=== PATIENT | male | born 1995 | race American Indian/Alaskan Native ===

== ENCOUNTER 2021-06-09 18:15 | Emergency (ER) | payer SELFPAY ==
[2021-06-09] MEDS ORDERED: LORazepam 2 MG/ML VIAL IM PRN (19:45)
[2021-06-09] MEDS ORDERED: HALOPERIDOL LACTATE 5 MG/1 ML INJ IM PRN (19:45)
--- NOTE | 2021-06-09 19:51 | Emergency Department Report ---
ED General Adult HPI - General Chief complaint: Psych Stated complaint: PSYCH Time Seen by Provider: 06/09/21 19:44 Source: patient Mode of arrival: Ambulatory Limitations: Other (The patient is disorganized and psychotic) - History of Present Illness Initial comments: The patient was evaluated in the emergency department for symptoms described in the history of present illness. He/she was evaluated in the context of the global COVID-19 pandemic, which necessitated consideration that the patient might be at risk for infection with the virus that causes COVID-19. Institutional protocols and algorithms that pertain to the evaluation of patients at risk for COVID-19 are in a state of rapid change based on information released by regulatory bodies including the CDC and federal and state organizations. These policies and algorithms were followed during the patient's care in the emergency department. Please note that these policies, procedures and recommendations changed on a rapid basis. The patient is a 26-year-old gentleman. He is not known to myself previously. He has a history of bipolar 1, and reports that he is COVID-19 vaccinated. He is brought to the hospital by emergency medical services for psychiatric evaluation. The patient denies physical pain at this time. The patient is evasive as to questions regarding homicidality or suicidality. When I asked the patient if he is feeling homicidal or suicidal, he states "if I were a soldier, I would kraus everyone." Collateral information obtained from EMS. They report that they were contacted because the patient verbally threatened to kill a family member. The patient denies overdose. The patient denies hallucinations. The patient is not accompanied by friends or family at this time for collateral information. Called the patient's mother, Ms. Bri Mcdonald; [phone]. Nobody answered, I left a voicemail for call back. EMS reports patient ambulatory in the field, with normal vital signs. -: This evening - Related Data Allergies Allergy/AdvReac Type Severity Reaction Status Date / Time risperidone [From Risperdal] Allergy Seizure Verified 06/09/21 20:11 ED Review of Systems ROS: Stated complaint: PSYCH Other details as noted in HPI Constitutional: denies: fever Respiratory: denies: cough Cardiovascular: denies: chest pain Gastrointestinal: denies: abdominal pain Psychiatric: as per HPI ED Physical Exam - General Limitations: Other (The patient is acutely psychotic and disorganized) General appearance: alert, anxious - Head Head exam: Present: atraumatic, normocephalic - Eye Eye exam: Present: normal appearance, EOMI. Absent: nystagmus - ENT ENT exam: Present: normal exam, normal orophraynx, mucous membranes moist - Neck Neck exam: Present: normal inspection, full ROM. Absent: tenderness, meningismus - Respiratory Respiratory exam: Present: normal lung sounds bilaterally. Absent: respiratory distress, wheezes, rales, rhonchi, stridor, decreased breath sounds - Cardiovascular Cardiovascular Exam: Present: normal rhythm, tachycardia, normal heart sounds. Absent: irregular rhythm, systolic murmur, diastolic murmur, rubs, gallop - GI/Abdominal GI/Abdominal exam: Present: soft. Absent: distended, tenderness, guarding, rebound, rigid, pulsatile mass - Rectal Rectal exam: Present: deferred - Extremities Exam Extremities exam: Present: normal inspection, full ROM, other (2+ pulses noted in the bilateral upper and lower extremities. There is no palpable cord. negative Homans sign. Muscular compartments are soft. The pelvis is stable.). Absent: pedal edema, calf tenderness - Back Exam Back exam: Present: normal inspection. Absent: tenderness, CVA tenderness (R), CVA tenderness (L), paraspinal tenderness, vertebral tenderness - Neurological Exam Neurological exam: Present: alert, normal gait, other (No facial droop. Tongue midline. Extraocular movements intact bilaterally. Facial sensation intact to light touch in V1, V2, V3 distribution bilaterally. 5 and a 5 strength in 4 extremities. Sensation intact to light touch in 4 extremities.). Absent: motor sensory deficit - Psychiatric Psychiatric exam: Present: agitated, anxious - Skin Skin exam: Present: warm, dry, intact, normal color. Absent: rash ED Course Vital Signs 06/09/21 18:16 Temperature 99 F Pulse Rate 100 H Respiratory 16 Rate Blood Pressure 136/88 [Left] O2 Sat by Pulse 99 Oximetry - Reevaluation(s) Reevaluation #1: 06/09/21 20:18 Differential diagnosis, including but not limited to: Psychosis, medical clearance for psychiatric placement Assessment and plan: 26-year-old gentleman, 911 contacted because he verbally threatened someone as per verbal report from EMS, who is bizarre, disorganized, and appears psychotic on my examination. Patient meets criteria for 1013 hold/involuntary hold. I have ordered and signed a patient's 1013. Appropriate laboratory studies will be ordered. As needed medications ordered. Care be transferred to the oncoming ER physician, to follow-up on laboratory studies and urinalysis. Presuming laboratory studies unremarkable, it would to clear this patient for psychiatric evaluation. ED Medical Decision Making - Lab Data Vital Signs 06/09/21 18:16 Temperature 99 F Pulse Rate 100 H Respiratory 16 Rate Blood Pressure 136/88 [Left] O2 Sat by Pulse 99 Oximetry Critical care attestation.: If time is entered above; I have spent that time in minutes in the direct care of this critically ill patient, excluding procedure time. ED Disposition Clinical Impression: Psychosis, Medical clearance for psychiatric admission Disposition: PSYCHIATRIC HOSPITAL Is pt being admited?: No Does the pt Need Aspirin: No Condition: Good Referrals: PRIMARY CARE, [Primary Care Provider] - 3-5 Days
[2021-06-09 21:06] LABS: Alanine Aminotransferase 19 units/L (7-56); Albumin 4.5 g/dL (3.9-5); BUN/Creatinine Ratio 12; Blood Urea Nitrogen 11 mg/dL (9-20); Calcium 9.1 mg/dL (8.4-10.2); Hemolysis Index 19
[2021-06-09 21:38] LABS: Mean Corpuscular HGB Conc 32 % (32-34); Mean Corpuscular Volume 88 fl (84-94); Platelet Count 305 K/mm3 (140-440); Red Blood Count 4.67 M/mm3 (3.65-5.03); Red Cell Distribution Width 13.9 % (13.2-15.2)
[2021-06-09 22:45] LABS: Amphetamine Screen,Urine Negative; Benzodiazepines Screen,Urine Negative; Cocaine Screen,Urine Negative; Methadone Screen,Urine Negative; Opiate Screen,Urine Negative
[2021-06-09 22:47] LABS: Bilirubin,Urine NEG (Negative); Blood,Urine NEG (Negative); Color,Urine Yellow (Yellow); Mucus,Urine 2+ /HPF; RBC,Urine < 1.0 /HPF (0.0-6.0)
[2021-06-09 23:39] LABS: Cannabinoid Screen,Urine Positive
--- NOTE | 2021-06-10 10:14 | Consultation ---
History of Present Illness - Reason for Consult Consult date: 06/10/21 Reason for consult: mental health evaluation - History of Present Psychiatric Illness The patient is a 26 year old male with history of bipolar 1. In my interview with the patient, he is calm, alert and oriented x3. The patient states that he came to the hospital " so my mom can blow off some steam off. " the patient reports going to [facility] and that he is compliant with [facility] ds. The patient denies any current suicidal/homicidal ideation and denies hallucinations. Per nurse, no aggressive behaviors noted. PAST PSYCHIATRIC HISTORY Diagnoses: Bipolar Suicide attempts or Self-harm behavior: Denies Prior psychiatric hospitalizations: Yes Substance Abuse history: Alcohol Previous psychiatric medications tried: [facility] Outpatient treatment: [facility] PAST MEDICAL HISTORY: None reported Family Psychiatric History: None reported or documented SOCIAL HISTORY Marital Status: single Living Arrangements: Lives with parents Employment Status: employed Access to guns/weapons: Denies Education: Bachelors History of Abuse: Denies Legal History: None reported REVIEW OF SYSTEMS Constitutional: Negative for weight loss ENT: Negative for stridor Respiratory: Negative for cough or hemoptysis All other systems reviewed and are negative MENTAL STATUS EXAMINATION General Appearance and Behavior: Age appropriate, good hygiene, not wearing appropriate clothes, good eye contact, cooperative polite with questioning. Cooperation: Participating/engaged Psychomotor Behavior: Psychomotor normal Mood: "Ok" Affect and affective range: Congruent with stated mood Thought Process: goal directed Thought Content: None Speech: normal tone and pace Suicidal Ideation: Denies Homicidal Ideation: Denies HI Hallucinations: Denies Delusions: None elicited Impulse Control: Limited Insight and Judgment: Limited insight and good judgment Memory: Normal Attention: Normal Orientation: Alert, oriented, Assessment and Plan Hx of Bioplar disorder Treatment Dc 1013 Restart home meds Medical: Per primary Sitter: Defer to [facility] Disposition:Do not recommend acute inpatient treatment. Neon Installer will provide patient with safety plan. Will sign off. Medications and Allergies Medications and Allergies Allergies Allergy/AdvReac Type Severity Reaction Status Date / Time risperidone [From Risperdal] Allergy Seizure Verified 06/09/21 20:11 Active Meds: Active Medications Haloperidol Lactate (Haloperidol Lactate 5 Mg/1 Ml Inj) 5 mg IM Q6HR PRN PRN Reason: Agitation Last Admin: 06/09/21 22:11 Dose: 5 mg Documented by: Lorazepam (Lorazepam 2 Mg/Ml Vial) 2 mg IM Q4HR PRN PRN Reason: Agitation Last Admin: 06/09/21 22:11 Dose: 2 mg Documented by: Mental Status Exam - Vital signs Last Vital Signs Temp 99 F 06/09/21 18:16 Pulse 100 H 06/09/21 18:16 Resp 16 06/09/21 18:16 BP 136/88 06/09/21 18:16 Pulse Ox 99 06/09/21 21:12 Results Result Diagrams: 06/09/21 20:33 06/09/21 20:33 Abnormal lab results 06/09/21 06/09/21 06/09/21 Range/Units 20:33 20:33 20:33 Glucose 138 H (75-100) mg/dL Ur Specific [place] (1.003-1.030) Salicylates < 0.3 L (2.8-20.0) mg/dL Acetaminophen 5.0 L (10.0-30.0) ug/mL 06/09/21 Range/Units 21:39 Glucose (75-100) mg/dL Ur Specific [place] 1.031 H (1.003-1.030) Salicylates (2.8-20.0) mg/dL Acetaminophen (10.0-30.0) ug/mL All other labs normal.
--- NOTE | 2021-06-10 11:47 | Event Note ---
Date: 06/10/21 The patient was evaluated in the emergency department for symptoms described in the history of present illness. He/she was evaluated in the context of the global COVID-19 pandemic, which necessitated consideration that the patient might be at risk for infection with the virus that causes COVID-19. Institutional protocols and algorithms that pertain to the evaluation of patients at risk for COVID-19 are in a state of rapid change based on information released by regulatory bodies including the CDC and federal and state organizations. These policies and algorithms were followed during the patient's care in the emergency department. Please note that these policies, procedures and recommendations changed on a rapid basis. Laboratory studies, vital signs, nursing documentation, ER documentation, and psychiatric documentation are reviewed and appreciated. Nursing team reports no acute events this morning or concerns. The patient is awake and does not appear to be in any acute distress. The patient was deemed medically suitable for psychiatric disposition and placement during his initial ER evaluation. The psychiatric team have seen and evaluated this patient, and have recommended discharge. Patient endorses no physical pain at this time. Vital Signs 06/09/21 06/09/21 18:16 21:12 Temperature 99 F Pulse Rate 100 H Respiratory 16 Rate Blood Pressure 136/88 [Left] O2 Sat by Pulse 99 99 Oximetry Lab Results 06/09/21 06/09/21 06/09/21 Range/Units 20:33 20:33 20:33 WBC (4.5-11.0) K/mm3 RBC (3.65-5.03) M/mm3 Hgb (11.8-15.2) gm/dl Hct (35.5-45.6) % MCV (84-94) fl MCH (28-32) pg MCHC (32-34) % RDW (13.2-15.2) % Plt Count (140-440) K/mm3 Sodium 140 (137-145) mmol/L Potassium 4.0 (3.6-5.0) mmol/L Chloride 104.3 (98-107) mmol/L Carbon Dioxide 23 (22-30) mmol/L Anion Gap 17 mmol/L BUN 11 (9-20) mg/dL Creatinine 0.9 (0.8-1.3) mg/dL Estimated GFR > 60 ml/min BUN/Creatinine Ratio 12 % Glucose 138 H (75-100) mg/dL Calcium 9.1 (8.4-10.2) mg/dL Total Bilirubin 0.40 (0.1-1.2) mg/dL AST 25 (5-40) units/L ALT 19 (7-56) units/L Alkaline Phosphatase 116 (35-129) units/L Total Protein 7.4 (6.3-8.2) g/dL Albumin 4.5 (3.9-5) g/dL Albumin/Globulin Ratio 1.6 % Urine Color (Yellow) Urine Turbidity (Clear) Urine pH (5.0-7.0) Ur Specific [place] (1.003-1.030) Urine Protein (Negative) mg/dL Urine Glucose (UA) (Negative) mg/dL Urine Ketones (Negative) mg/dL Urine Blood (Negative) Urine Nitrite (Negative) Urine Bilirubin (Negative) Urine Urobilinogen (<2.0) mg/dL Ur Leukocyte Esterase (Negative) Urine WBC (Auto) (0.0-6.0) /HPF Urine RBC (Auto) (0.0-6.0) /HPF Urine Mucus /HPF Salicylates < 0.3 L (2.8-20.0) mg/dL Urine Opiates Screen Urine Methadone Screen Acetaminophen 5.0 L (10.0-30.0) ug/mL Ur Barbiturates Screen Ur Phencyclidine Scrn Ur Amphetamines Screen U Benzodiazepines Scrn Urine Cocaine Screen U Marijuana (THC) Screen Drugs of Abuse Note Plasma/Serum Alcohol (0-0.07) % 06/09/21 06/09/21 06/09/21 Range/Units 20:33 20:33 21:39 WBC 8.5 (4.5-11.0) K/mm3 RBC 4.67 (3.65-5.03) M/mm3 Hgb 13.0 (11.8-15.2) gm/dl Hct 41.0 (35.5-45.6) % MCV 88 (84-94) fl MCH 28 (28-32) pg MCHC 32 (32-34) % RDW 13.9 (13.2-15.2) % Plt Count 305 (140-440) K/mm3 Sodium (137-145) mmol/L Potassium (3.6-5.0) mmol/L Chloride (98-107) mmol/L Carbon Dioxide (22-30) mmol/L Anion Gap mmol/L BUN (9-20) mg/dL Creatinine (0.8-1.3) mg/dL Estimated GFR ml/min BUN/Creatinine Ratio % Glucose (75-100) mg/dL Calcium (8.4-10.2) mg/dL Total Bilirubin (0.1-1.2) mg/dL AST (5-40) units/L ALT (7-56) units/L Alkaline Phosphatase (35-129) units/L Total Protein (6.3-8.2) g/dL Albumin (3.9-5) g/dL Albumin/Globulin Ratio % Urine Color Yellow (Yellow) Urine Turbidity Clear (Clear) Urine pH 5.0 (5.0-7.0) Ur Specific [place] 1.031 H (1.003-1.030) Urine Protein 30 mg/dl (Negative) mg/dL Urine Glucose (UA) Neg (Negative) mg/dL Urine Ketones Tr (Negative) mg/dL Urine Blood Neg (Negative) Urine Nitrite Neg (Negative) Urine Bilirubin Neg (Negative) Urine Urobilinogen 2.0 (<2.0) mg/dL Ur Leukocyte Esterase Neg (Negative) Urine WBC (Auto) 1.0 (0.0-6.0) /HPF Urine RBC (Auto) < 1.0 (0.0-6.0) /HPF Urine Mucus 2+ /HPF Salicylates (2.8-20.0) mg/dL Urine Opiates Screen Urine Methadone Screen Acetaminophen (10.0-30.0) ug/mL Ur Barbiturates Screen Ur Phencyclidine Scrn Ur Amphetamines Screen U Benzodiazepines Scrn Urine Cocaine Screen U Marijuana (THC) Screen Drugs of Abuse Note Plasma/Serum Alcohol < 0.01 (0-0.07) % 06/09/21 Range/Units 21:39 WBC (4.5-11.0) K/mm3 RBC (3.65-5.03) M/mm3 Hgb (11.8-15.2) gm/dl Hct (35.5-45.6) % MCV (84-94) fl MCH (28-32) pg MCHC (32-34) % RDW (13.2-15.2) % Plt Count (140-440) K/mm3 Sodium (137-145) mmol/L Potassium (3.6-5.0) mmol/L Chloride (98-107) mmol/L Carbon Dioxide (22-30) mmol/L Anion Gap mmol/L BUN (9-20) mg/dL Creatinine (0.8-1.3) mg/dL Estimated GFR ml/min BUN/Creatinine Ratio % Glucose (75-100) mg/dL Calcium (8.4-10.2) mg/dL Total Bilirubin (0.1-1.2) mg/dL AST (5-40) units/L ALT (7-56) units/L Alkaline Phosphatase (35-129) units/L Total Protein (6.3-8.2) g/dL Albumin (3.9-5) g/dL Albumin/Globulin Ratio % Urine Color (Yellow) Urine Turbidity (Clear) Urine pH (5.0-7.0) Ur Specific [place] (1.003-1.030) Urine Protein (Negative) mg/dL Urine Glucose (UA) (Negative) mg/dL Urine Ketones (Negative) mg/dL Urine Blood (Negative) Urine Nitrite (Negative) Urine Bilirubin (Negative) Urine Urobilinogen (<2.0) mg/dL Ur Leukocyte Esterase (Negative) Urine WBC (Auto) (0.0-6.0) /HPF Urine RBC (Auto) (0.0-6.0) /HPF Urine Mucus /HPF Salicylates (2.8-20.0) mg/dL Urine Opiates Screen Negative Urine Methadone Screen Negative Acetaminophen (10.0-30.0) ug/mL Ur Barbiturates Screen Negative Ur Phencyclidine Scrn Negative Ur Amphetamines Screen Negative U Benzodiazepines Scrn Negative Urine Cocaine Screen Negative U Marijuana (THC) Screen Positive Drugs of Abuse Note Disclamer Plasma/Serum Alcohol (0-0.07) % Vital Signs 06/09/21 06/09/21 06/10/21 18:16 21:12 11:51 Temperature 99 F 97.6 F Pulse Rate 100 H 95 H Respiratory 16 18 Rate Blood Pressure 136/88 106/68 [Left] O2 Sat by Pulse 99 99 98 Oximetry
[2021-06-10 11:53] VITALS: BP 106/68
== END 2021-06-10 13:31 | disposition home or self-care (01) ==
LOC: ED 18:15
DX: F29 Unspecified psychosis not due to a substance or known physiological condition (principal); Z13.30 Encounter for screening examination for mental health and behavioral disorders, unspecified; Z88.8 Allergy status to other drugs, medicaments and biological substances; Z79.899 Other long term (current) drug therapy; Z20.822 Contact with and (suspected) exposure to COVID-19
CPT/HCPCS: 36415; 80053; 80307; 81001; 85027; 96372; 99284; J1630; J2060; U0003; 80320; G0480